=== PATIENT | male | born 1980 | race Caucasian/White ===

== ENCOUNTER 2022-10-03 12:21 | Outpatient (AMB) | payer MEDICARE, MEDICAID, SELFPAY ==
--- NOTE | 2022-10-03 12:30 | MHC.PC.OV ---
Vital Signs 10/03/22 12:31 Height 5 ft 10 in Weight 175 lb BMI 25.1 BP 120/86 Blood Pressure Location Lt brachial Position Sitting Pulse 94 Pulse Source Pulse Oximeter Pulse Oximetry (%) 97 Oxygen Delivery Method Room Air Intake Visit Reasons: urine issues , skin feel like fire Intake Note: Pt is here today c/o slow stream upon urination, as times skin feels that is on fire Allergies bee pollen [BEE STINGS] Allergy (Severe, Unverified 10/03/22 12:31) SWELLING Tobacco use date assessed: 10/03/22 Dental Screening Dental Screen Date: 10/03/22 Did you have a dental visit in the last 12 months?: Yes Did you have a dental problem in the last 6 months where you did not have access to dental care?: No Was dental information given to patient?: Patient has dentist HPI urine issues , skin feel like fire HPI Details Pt c/o excessive ETOH use for the last year. Patient is feeling that he needs to cut down on alcohol. He follows up with a therapist for chronic depression personality disorder and anxiety. Patient denies suicidal ideation. Patient complains increased urinary frequency and not complete bladder emptying on and off for the last few months worse since he increase fluid intake including drinking tea and coffee. Patient denies abdominal pain dysuria hematuria back pain fever chills PFSH Medical History Annual physical exam Hyperlipidemia Personality disorder Social History Household Members Other:: Lives with parents, unemployed Housing: House Patient Tobacco Use Status: Never used Tobacco e-Cigarette/Vaping Use: Never Used service: No Current occupational status: unemployed Cognitive needs: No Hearing needs: No Vision needs: Yes Questionnaire AUDIT C Alcohol Use Questionnaire (AUDIT-C) 1. How often do you have a drink containing alcohol?: 4 or more times a week 2. How many drinks containing alcohol do you have on a typical day when you are drinking?: 3 or 4 3. How often do you have six or more drinks on one occasion?: Weekly Total Score: 8 Review of Systems Const All systems reviewed & are unremarkable except as noted in HPI and below Reports no additional complaints Eyes Reports no additional complaints ENT Reports no additional complaints Card Reports no additional complaints Resp Reports no additional complaints GI Reports no additional complaints Reports no additional complaints Physical exam (Primary Care) Vital Signs: Last Vital Signs Pulse 94 10/03/22 12:31 BP 120/86 10/03/22 12:31 Pulse Ox 97 10/03/22 12:31 Oxygen Delivery Method Room Air 10/03/22 12:31 BMI result Body Mass Index 25.1 Tobacco/Smoking Status: Tobacco use Status Tobacco use date assessed 10/03/22 10/03/22 12:37 Patient Tobacco Use Status Never used Tobacco 10/03/22 12:37 e-Cigarette/Vaping Use Never Used 10/03/22 12:37 HENMT Head: Yes normal to inspection Resp Effort & Inspection: normal respiratory effort Auscultation: clear to auscultation bilaterally Cardio Rhythm: regular rhythm Heart sounds: S1 normal heart sound present and S2 normal heart sound present GI Inspection: Yes normal to inspection Palpation (GI): Soft to palpation Percussion: Yes normal to percussion Auscultation: normal bowel sounds Assessment and Plan Assessment & Plan (1) Incomplete bladder emptying: Code(s): R33.9 - Retention of urine, unspecified Plan: Obtain blood work including PSA urinalysis and bladder scan. Patient is not interested in taking finasteride. He will try [place] supplement (2) Annual physical exam: Code(s): Z00.00 - Encounter for general adult medical examination without abnormal findings (3) Excessive drinking alcohol: Code(s): F10.10 - Alcohol abuse, uncomplicated Plan: Cutting down on alcohol discussed with the patient. He will discussed coping methods for increased anxiety and stress with his therapist Orders: Orders Vitamin B12 and Folate Today R33.9 - Retention of urine, unspecified, Z00.00 - Encounter for general adult medical examination without abnormal findings Comprehensive [place]. Panel Fast Today R33.9 - Retention of urine, unspecified, Z00.00 - Encounter for general adult medical examination without abnormal findings Lipid Panel Today R33.9 - Retention of urine, unspecified, Z00.00 - Encounter for general adult medical examination without abnormal findings PSA,Total (Free>4and<10) Today R33.9 - Retention of urine, unspecified, Z00.00 - Encounter for general adult medical examination without abnormal findings Complete Blood Count Auto Diff Today R33.9 - Retention of urine, unspecified, Z00.00 - Encounter for general adult medical examination without abnormal findings UA w Microscopic Today R33.9 - Retention of urine, unspecified, Z00.00 - Encounter for general adult medical examination without abnormal findings US bladder Today R33.9 - Retention of urine, unspecified, Z00.00 - Encounter for general adult medical examination without abnormal findings Coding Level of Care Code Est Pt Level 4 (42402) Diagnoses Incomplete bladder emptying R33.9 Annual physical exam Z00.00 Excessive drinking alcohol F10.10
[2022-10-03 12:31] VITALS: BP 120/86; PULSE 94; O2SAT 97; BMI 25.1
== END 2022-10-03 13:58 | disposition home or self-care (01) ==
PROVIDERS: PCP Internal Medicine; Visit Provider Internal Medicine
DX: R33.9 Retention of urine, unspecified (principal); Z00.00 Encounter for general adult medical examination without abnormal findings; F10.10 Alcohol abuse, uncomplicated
CPT/HCPCS: 99214

== ENCOUNTER 2022-10-06 06:24 | Outpatient (REF) | payer MEDICARE, MEDICAID, SELFPAY ==
[2022-10-06 06:43] LABS: MANUAL DIFF FLAG NO
[2022-10-06 07:21] LABS: Basophils Percent Auto 0.5 % (0-2); Eosinophils Absolute Auto 0.2 X10*3/uL (0.0-0.4); Eosinophils Percent Auto 3.3 % (0-4); Hematocrit 45.8 % (42.0-52.0); Hemoglobin 15.3 g/dl (14.0-18.0); Imm Gran Abs Auto 0.02 X10*3/uL (0.00-0.03); Imm Gran Pct Auto 0.3 % (0.0-0.4); Lymphocytes Absolute Auto 1.9 X10*3/uL (1.2-4.9); Lymphocytes Percent Auto 28.7 % (20-40); Mean Corpuscular HGB Conc 33.4 g/dl (31.0-36.0); Mean Corpuscular Hemoglobin 31.4 pg (27.0-33.0); Monocytes Absolute Auto 0.5 X10*3/uL (0.1-1.2); Monocytes Percent Auto 8.2 % (2-11); Neutrophils Absolute Auto 3.9 x10*3/uL (2.0-8.3); Platelet Count 255 X10*3/uL (160-400); Red Blood Count 4.87 X10*6/uL (4.60-5.80); Red Cell Distribution Width 12.5 % (11.0-16.0); White Blood Count 6.6 X10*3/uL (4.8-10.8)
[2022-10-06 08:01] LABS: Alanine Aminotransferase 18 U/L (0-40); Albumin Level 4.4 g/dL (3.5-5.0); Alkaline Phosphatase 62 U/L (39-117); Anion Gap 11 (12-20); Aspartate Amino Transferase 18 U/L (5-37); Bilirubin Total 0.6 mg/dL (0.0-1.0); Blood Urea Nitrogen 20 mg/dL (9-16); Calcium 9.3 mg/dL (8.4-10.2); Carbon Dioxide 25 mmol/L (22-29); Chloride 107 mmol/L (96-108); Cholesterol 201 mg/dL; Estimated Glomerular Filt Rate > 60; Glucose Fasting 108 mg/dL (60-99); HDL Cholesterol 34 mg/dL; LDL Cholesterol Calculated 136 mg/dl; Potassium 3.5 mmol/L (3.3-5.1); Sodium 139 mmol/L (135-145); Total Protein 6.8 g/dL (6.5-8.0); Triglycerides 155 mg/dL
[2022-10-06 08:27] LABS: Appearance Urine Clear; Color Urine Yellow; Glucose Urine UA Negative (Negative); Leukocyte Esterase Urine Negative (Negative); Nitrite Urine Negative (Negative); Specific Gravity - Urine >= 1.030 (1.005-1.025); Urine Blood Negative (Negative); Urine Ketones Trace mg/dL (Negative); Urine Protein Trace mg/dL (Neg-Trace)
[2022-10-06 08:33] LABS: PSA,Total (Free>4and<10) 0.55 ng/mL (0.00-4.00)
[2022-10-06 08:35] LABS: Folate 4.3 ng/mL (> or = 4.0); Vitamin B12 305 pg/mL (200-900)
[2022-10-06 08:36] LABS: Bacteria Urine None Seen (None Seen); Hyaline Casts Urine 0-2 /LPF (0-2); RBC Urine 0-2 /HPF (0-2); Squamous Epithelial Cell Urine 0-2 /HPF (0-2); WBC Urine 0-5 /HPF (0-5)
== END 2022-10-06 06:25 | disposition home or self-care (01) ==
LOC: HO.LAB 06:24
PROVIDERS: PCP Internal Medicine; Visit Provider Internal Medicine
DX: Z00.00 Encounter for general adult medical examination without abnormal findings (principal); Z12.5 Encounter for screening for malignant neoplasm of prostate; R33.9 Retention of urine, unspecified
CPT/HCPCS: 36415; 80053; 80061; 81001; 82607; 82746; 84153; 85025